=== PATIENT | male | born 1965 | race Caucasian/White ===

== ENCOUNTER 2017-01-07 21:43 | Emergency (ER) | payer BC ==
[2017-01-07 21:52] VITALS: BP 148/92
== END 2017-01-07 23:07 | disposition home or self-care (01) ==
LOC: ED 21:43
DX: S92.414A Nondisplaced fracture of proximal phalanx of right great toe, initial encounter for closed fracture (principal); W20.8XXA Other cause of strike by thrown, projected or falling object, initial encounter; Y93.89 Activity, other specified; Y92.89 Other specified places as the place of occurrence of the external cause; Y99.8 Other external cause status
CPT/HCPCS: J1885

== ENCOUNTER 2017-04-20 20:23 | Emergency (ER) | payer BC ==
[~2017-04-20] VITALS: Ht 185.4 cm; Wt 78.9 kg
[2017-04-20 20:30] VITALS: Ht 185.4 cm; Wt 78.9 kg
[2017-04-21 00:12] VITALS: BP 127/82
== END 2017-04-21 00:12 | disposition home or self-care (01) ==
LOC: ED 20:23
DX: M54.6 Pain in thoracic spine (principal); R03.0 Elevated blood-pressure reading, without diagnosis of hypertension; F17.200 Nicotine dependence, unspecified, uncomplicated
CPT/HCPCS: J3010; Q0162

== ENCOUNTER 2017-05-11 21:39 | Emergency (ER) | payer BC ==
[~2017-05-11] VITALS: Ht 185.4 cm; Wt 108.4 kg
[2017-05-11 21:47] VITALS: Ht 185.4 cm; Wt 108.4 kg
[2017-05-12 00:07] VITALS: BP 124/85
== END 2017-05-12 00:07 | disposition home or self-care (01) ==
LOC: ED 21:39
DX: S86.811A Strain of other muscle(s) and tendon(s) at lower leg level, right leg, initial encounter (principal); R03.0 Elevated blood-pressure reading, without diagnosis of hypertension; W22.8XXA Striking against or struck by other objects, initial encounter; Y93.89 Activity, other specified; Y92.89 Other specified places as the place of occurrence of the external cause; Y99.8 Other external cause status
CPT/HCPCS: J1885

== ENCOUNTER 2017-06-07 21:57 | Emergency (ER) | payer BC ==
[~2017-06-07] VITALS: Ht 185.4 cm; Wt 79.4 kg
[2017-06-07 22:23] VITALS: Ht 185.4 cm; Wt 79.4 kg
[2017-06-08 02:22] VITALS: BP 134/81
== END 2017-06-08 02:22 | disposition home or self-care (01) ==
LOC: ED 21:57
DX: M65.261 Calcific tendinitis, right lower leg (principal); M79.671 Pain in right foot
CPT/HCPCS: J2270

== ENCOUNTER 2017-12-13 18:36 | Emergency (ER) | payer BC ==
[~2017-12-13] VITALS: Ht 185.4 cm; Wt 79.9 kg
[2017-12-13 18:46] VITALS: Ht 185.4 cm; Wt 79.9 kg
[2017-12-13 20:01] VITALS: BP 132/78
== END 2017-12-13 20:50 | disposition home or self-care (01) ==
LOC: ED 18:36
DX: J06.9 Acute upper respiratory infection, unspecified (principal)
CPT/HCPCS: J1100